=== PATIENT | female | born 1990 | race Caucasian/White ===

== ENCOUNTER 2019-08-25 12:57 | Emergency (ER) | payer OTHER ==
[~2019-08-25] VITALS: Ht 157.5 cm; Wt 65.3 kg
[2019-08-25] MEDS ORDERED: PRENATABS RX T1 EACH (13:04)
== END 2019-08-25 16:55 ==
LOC: ER 12:57
DX: O03.1 Delayed or excessive hemorrhage following incomplete spontaneous abortion (principal)

== ENCOUNTER 2019-08-26 17:31 | Emergency (ER) | payer OTHER ==
[~2019-08-26] VITALS: Ht 157.5 cm; Wt 65.3 kg
[~2019-08-26 17:31] MED LIST: PRENATABS RX T1 EACH
[2019-08-28] MEDS ORDERED: CYTOTEC200 MCG (05:54)
== END 2019-08-27 10:18 | disposition home or self-care (01) ==
LOC: ER 17:31
DX: O03.1 Delayed or excessive hemorrhage following incomplete spontaneous abortion (principal)

== ENCOUNTER 2019-08-28 05:42 | Emergency (ER) | payer OTHER ==
[~2019-08-28] VITALS: Ht 157.5 cm; Wt 65.3 kg
[2019-08-28] MEDS ORDERED: CYTOTEC200 MCG (05:54)
== END 2019-08-28 11:39 | disposition home or self-care (01) ==
LOC: ER 05:42
DX: O03.9 Complete or unspecified spontaneous abortion without complication (principal)